=== PATIENT | male | born 1965 | race Caucasian/White ===

== ENCOUNTER 2022-06-07 15:18 | Outpatient (CLI) | payer OTHER, SELFPAY ==
[2022-06-07 16:19] LABS: Albumin* 4.1 g/dL (3.3-5.0); Chloride* 103 mmol/L (96-114); Sodium* 135 mmol/L (135-149)
[2022-06-07 16:21] LABS: Cholesterol* 207 mg/dL (90-199)
[2022-06-07 16:22] LABS: Alanine Aminotransferase* 15 U/L (4-50); Alkaline Phosphatase* 100 U/L (40-150); Bilirubin Total* 0.4 mg/dL (0.1-1.5); Blood Urea Nitrogen* 14 mg/dL (7-30); Carbon Dioxide* 23 mmol/L (20-32); Creatinine* 0.7 mg/dL (0.5-1.5); Estimated Glomerular Filt Rate 107 ml/min; Glucose* 164 mg/dL (60-115); Total Protein* 6.7 g/dL (6.0-8.3)
[2022-06-07 16:23] LABS: Calcium* 9.1 mg/dL (8.4-10.6); HDL Cholesterol* 27 mg/dL (>=40)
[2022-06-07 17:07] LABS: LDL Cholesterol Calculated -16 mg/dL (<100); Triglycerides* 981 mg/dL (40-149)
[2022-06-07 17:39] LABS: Aspartate Amino Transferase* 26 U/L (12-35)
== END 2022-06-07 15:19 | disposition home or self-care (01) ==
PROVIDERS: PCP Physician Assistant Medical; Visit Provider Family Medicine
DX: Z00.00 Encounter for general adult medical examination without abnormal findings (principal); E11.9 Type 2 diabetes mellitus without complications; Z13.6 Encounter for screening for cardiovascular disorders; Z12.5 Encounter for screening for malignant neoplasm of prostate
CPT/HCPCS: 80053; 80061; 82043; 82570; 84153

== ENCOUNTER 2022-10-13 14:16 | Outpatient (CLI) | payer OTHER, SELFPAY ==
[2022-10-13 15:15] LABS: Albumin* 4.1 g/dL (3.3-5.0); Chloride* 104 mmol/L (96-114); Potassium* 4.5 mmol/L (3.6-5.1); Sodium* 136 mmol/L (135-149)
[2022-10-13 15:17] LABS: Carbon Dioxide* 23 mmol/L (20-32); Cholesterol* 228 mg/dL (90-199); Creatinine* 0.7 mg/dL (0.5-1.5); Estimated Glomerular Filt Rate 106 ml/min
[2022-10-13 15:18] LABS: Alanine Aminotransferase* 24 U/L (4-50); Alkaline Phosphatase* 100 U/L (40-150); Aspartate Amino Transferase* 34 U/L (12-35); Bilirubin Total* 0.4 mg/dL (0.1-1.5); Blood Urea Nitrogen* 16 mg/dL (7-30); Calcium* 8.8 mg/dL (8.4-10.6); Glucose* 191 mg/dL (60-115); Total Protein* 6.9 g/dL (6.0-8.3)
[2022-10-13 15:19] LABS: HDL Cholesterol* 25 mg/dL (>=40)
[2022-10-13 15:46] LABS: Microalbumin Urine 1 mg/dL
[2022-10-13 15:48] LABS: Creatinine Urine 96.7 mg/dL; Microalbumin Creatinine Ratio 10 mg/g (0-30)
[2022-10-13 16:18] LABS: PSA Screen* 1.03 ng/mL (0.10-4.00)
[2022-10-13 17:18] LABS: Triglycerides* 2095 mg/dL (40-149)
== END 2022-10-13 14:17 | disposition home or self-care (01) ==
PROVIDERS: PCP Physician Assistant Medical; Visit Provider Emergency Medicine
DX: Z00.00 Encounter for general adult medical examination without abnormal findings (principal); E11.9 Type 2 diabetes mellitus without complications; E78.1 Pure hyperglyceridemia; I10 Essential (primary) hypertension; Z12.5 Encounter for screening for malignant neoplasm of prostate
CPT/HCPCS: 80053; 80061; 82043; 82570; 84153

== ENCOUNTER 2022-10-26 15:34 | Outpatient (CLI) | payer OTHER, SELFPAY ==
--- NOTE | 2022-10-26 16:00 | CRLHL7_ITS ---
For Patients: As a result of the Century Cures Act, medical imaging exams and procedure reports are released immediately into your electronic medical record. You may view this report before your referring provider. If you have questions, please contact your health care provider. INDICATION: Lung cancer screening. History of smoking. High risk patient with greater than 60 pack-year smoking history. TECHNIQUE: Low-dose lung cancer screening non-contrast CT chest. Dose reduction techniques were used. COMPARISON: None. FINDINGS: NODULES: Calcified lingula. 3 mm nodule left lower lobe 3/128. LUNGS AND PLEURA: Mild bullous emphysema. No infiltrate. MEDIASTINUM: Calcified left hilar lymph nodes. No suspicious lymph nodes. CORONARY ARTERY CALCIFICATION: Present. LIMITED UPPER ABDOMEN: 1 cm left adrenal nodule. MUSCULOSKELETAL: Degenerative changes IMPRESSION: Negative for lung cancer screening purposes. LUNG-RADS CATEGORY: 1: Negative. RADIOLOGIST RECOMMENDATION: Continue annual screening with low-dose CT chest in 12 months. Please note that all CT scans at this facility use dose modulation, iterative reconstruction, and/or weight-based dosing when appropriate to reduce radiation dose to as low as reasonably achievable. Dictated by Ketan Zhang MD @ 10/27/2022 4:52:06 PM (Electronically Signed)
== END 2022-10-26 15:35 | disposition home or self-care (01) ==
LOC: CT 15:35
PROVIDERS: PCP Emergency Medicine; Visit Provider Emergency Medicine
DX: Z12.2 Encounter for screening for malignant neoplasm of respiratory organs (principal); F17.210 Nicotine dependence, cigarettes, uncomplicated
CPT/HCPCS: 71271

== ENCOUNTER 2022-11-08 18:37 | Outpatient (CLI) | payer OTHER, SELFPAY ==
[2022-11-08 21:49] LABS: Chloride* 104 mmol/L (96-114)
[2022-11-08 21:50] LABS: Potassium* 4.1 mmol/L (3.6-5.1); Sodium* 137 mmol/L (135-149)
[2022-11-08 21:52] LABS: Creatinine* 0.9 mg/dL (0.5-1.5); Estimated Glomerular Filt Rate 98 ml/min
[2022-11-08 21:53] LABS: Blood Urea Nitrogen* 21 mg/dL (7-30); Calcium* 9.8 mg/dL (8.4-10.6); Carbon Dioxide* 25 mmol/L (20-32); Glucose* 114 mg/dL (60-115)
== END 2022-11-08 18:38 | disposition home or self-care (01) ==
PROVIDERS: PCP Emergency Medicine; Visit Provider Emergency Medicine
DX: E78.1 Pure hyperglyceridemia (principal)
CPT/HCPCS: 80048; 80061

== ENCOUNTER 2022-12-01 07:56 | Outpatient (CLI) | payer OTHER, SELFPAY ==
--- NOTE | 2022-12-01 08:34 | W.ANESCHARGE ---
Anesthesia Charges Start Date/Time Anesthesia Start Date: 12/01/22 Anesthesia Start Time: 08:53 Stop Date/Time Anesthesia Stop Date: 12/01/22 Anesthesia Stop Time: 09:30
--- NOTE | 2022-12-01 09:32 | W.ANESCHARGE ---
Anesthesia Charges Start Date/Time Anesthesia Start Date: 12/01/22 Anesthesia Start Time: 08:53 Stop Date/Time Anesthesia Stop Date: 12/01/22 Anesthesia Stop Time: 09:30
== END 2022-12-01 07:57 | disposition home or self-care (01) ==
PROVIDERS: PCP Emergency Medicine; Visit Provider Surgery
DX: Z12.11 Encounter for screening for malignant neoplasm of colon (principal); K63.5 Polyp of colon; Z86.010 Personal history of colon polyps
CPT/HCPCS: 00811; 45385; 88305; J2704

== ENCOUNTER 2023-01-13 08:00 | Outpatient (CLI) | payer OTHER, SELFPAY | END 2023-01-13 08:01 | disposition home or self-care (01) | LOC: NFLDREF 01-14 19:43 | PROVIDERS: PCP Emergency Medicine; Referring Provider Emergency Medicine; Visit Provider Emergency Medicine | DX: E78.1 Pure hyperglyceridemia (principal) | CPT/HCPCS: 80061 ==

== ENCOUNTER 2023-04-28 08:15 | Outpatient (CLI) | payer OTHER, SELFPAY | END 2023-04-28 08:16 | disposition home or self-care (01) | LOC: NFLDREF 04-30 02:23 | PROVIDERS: PCP Emergency Medicine; Referring Provider Emergency Medicine; Visit Provider Emergency Medicine | DX: E78.1 Pure hyperglyceridemia (principal); E11.9 Type 2 diabetes mellitus without complications | CPT/HCPCS: 80061 ==

== ENCOUNTER 2023-11-01 07:33 | Outpatient (CLI) | payer OTHER, SELFPAY | END 2023-11-01 07:34 | disposition home or self-care (01) | LOC: NFLDREF 11-03 05:47 | PROVIDERS: PCP Emergency Medicine; Referring Provider Emergency Medicine; Visit Provider Emergency Medicine | DX: Z00.00 Encounter for general adult medical examination without abnormal findings (principal); E11.9 Type 2 diabetes mellitus without complications; E78.1 Pure hyperglyceridemia; I10 Essential (primary) hypertension; Z13.6 Encounter for screening for cardiovascular disorders; Z12.5 Encounter for screening for malignant neoplasm of prostate | CPT/HCPCS: 80048; 80061; G0103 ==

== ENCOUNTER 2024-01-05 08:11 | Outpatient (CLI) | payer OTHER, SELFPAY ==
--- NOTE | 2024-01-05 09:00 | CT_ITS ---
Patient: PERRI MART Facility:?[facility] RIS Patient ID:?[id number] Site Patient ID:?[id number]. Site :?[id number] Study:?CT-Chest LOW DOSE-01/05/2024 8:42:52 AM Ordering Physician:?DR. GARCIA Final Report: INDICATION: Lung cancer screening. History of smoking. High risk patient with greater than 20 pack-year smoking history. TECHNIQUE: Low-dose lung cancer screening non-contrast CT chest. Dose reduction techniques were used. COMPARISON: None. FINDINGS: NODULES: Calcified granulomas in the left upper lobe. 2 millimeter nodule right upper lobe, 12/22. LUNGS AND PLEURA: Emphysema. MEDIASTINUM: Calcified left hilar lymph nodes. Incidental Bochdalek`s hernia containing fat on the left. CORONARY ARTERY CALCIFICATION: Present. LIMITED UPPER ABDOMEN: Diffuse hepatic steatosis. MUSCULOSKELETAL: Unremarkable. IMPRESSION: 2 millimeter right upper lobe noncalcified nodule. Calcified nodules left upper lobe. LUNG-RADS CATEGORY: 2: Benign. RADIOLOGIST RECOMMENDATION: Continue annual screening with low-dose CT chest in 12 months. Please note that all CT scans at this facility use dose modulation, iterative reconstruction, and/or weight-based dosing when appropriate to reduce radiation dose to as low as reasonably achievable. Dictated by Ketan Zhang MD @ 01/05/2024 12:01:43 PM Signed by:?Ketan Zhang MD @01/05/2024 12:01:43 PM (Electronic Signature)
== END 2024-01-05 08:12 | disposition home or self-care (01) ==
LOC: CT 08:12
PROVIDERS: PCP Emergency Medicine; Visit Provider Emergency Medicine
DX: Z12.2 Encounter for screening for malignant neoplasm of respiratory organs (principal); R91.8 Other nonspecific abnormal finding of lung field; F17.210 Nicotine dependence, cigarettes, uncomplicated
CPT/HCPCS: 71271

== ENCOUNTER 2024-03-21 07:24 | Outpatient (CLI) | payer OTHER, SELFPAY | END 2024-03-21 07:25 | disposition home or self-care (01) | LOC: NFLDREF 03-22 12:49 | PROVIDERS: PCP Emergency Medicine; Referring Provider Emergency Medicine; Visit Provider Emergency Medicine | DX: E11.9 Type 2 diabetes mellitus without complications (principal); R79.89 Other specified abnormal findings of blood chemistry; E78.1 Pure hyperglyceridemia; I10 Essential (primary) hypertension | CPT/HCPCS: 80048; 80061; 82043; 82570 ==

== ENCOUNTER 2024-06-05 07:43 | Outpatient (CLI) | payer OTHER, SELFPAY | END 2024-06-05 07:44 | disposition home or self-care (01) | LOC: NFLDREF 06-08 19:41 | PROVIDERS: PCP Emergency Medicine; Referring Provider Emergency Medicine; Visit Provider Emergency Medicine | DX: R79.89 Other specified abnormal findings of blood chemistry (principal); E78.1 Pure hyperglyceridemia | CPT/HCPCS: 80061; 84270; 84402; 84403 ==

== ENCOUNTER 2024-11-14 15:40 | Outpatient (CLI) | payer OTHER, SELFPAY | END 2024-11-14 15:41 | disposition home or self-care (01) | PROVIDERS: PCP Emergency Medicine; Visit Provider Emergency Medicine | DX: I10 Essential (primary) hypertension (principal); E78.1 Pure hyperglyceridemia; E11.9 Type 2 diabetes mellitus without complications; Z12.5 Encounter for screening for malignant neoplasm of prostate | CPT/HCPCS: 80053; 80061; G0103 ==

== ENCOUNTER 2025-01-10 11:46 | Outpatient (CLI) | payer OTHER, SELFPAY ==
--- NOTE | 2025-01-10 13:00 | CRLHL7_ITS ---
For Patients: As a result of the Century Cures Act, medical imaging exams and procedure reports are released immediately into your electronic medical record. You may view this report before your referring provider. If you have questions, please contact your health care provider. INDICATION: Lung cancer screening. History of smoking. High risk patient with greater than 43 pack-year smoking history. TECHNIQUE: Low-dose lung cancer screening non-contrast CT chest. Dose reduction techniques were used. COMPARISON: 2 FINDINGS: NODULES: Calcified nodules on the left and unchanged. Stable small nodule right upper lobe. LUNGS AND PLEURA: Emphysema. MEDIASTINUM: No adenopathy. CORONARY ARTERY CALCIFICATION: Present. LIMITED UPPER ABDOMEN: Hepatic steatosis. Left adrenal nodule unchanged. MUSCULOSKELETAL: Unremarkable. IMPRESSION: Negative for lung cancer screening purposes. LUNG-RADS CATEGORY: 2: Benign. RADIOLOGIST RECOMMENDATION: Continue annual screening with low-dose CT chest in 12 months. Please note that all CT scans at this facility use dose modulation, iterative reconstruction, and/or weight-based dosing when appropriate to reduce radiation dose to as low as reasonably achievable. Dictated by Ketan Zhang MD @ 01/13/2025 10:42:34 AM (Electronically Signed)
== END 2025-01-10 11:47 | disposition home or self-care (01) ==
LOC: CT 11:47
PROVIDERS: PCP Emergency Medicine; Visit Provider Emergency Medicine
DX: Z12.2 Encounter for screening for malignant neoplasm of respiratory organs (principal); F17.210 Nicotine dependence, cigarettes, uncomplicated
CPT/HCPCS: 71271

== ENCOUNTER 2025-02-18 14:40 | Outpatient (CLI) | payer OTHER, SELFPAY ==
[2025-02-18] MEDS: PERFLUTREN LIPID MICROSPHERES 2 ML VIAL IVP (15:49)
[2025-02-18 16:12] VITALS: BP 142/72; PULSE 80; RESP 16; O2SAT 96
--- NOTE | 2025-02-18 16:26 | W.PM.STED ---
Stress Test Note Date Date Seen: 02/18/25 Date of test: 02/18/25 Providers Primary care provider: Belkis Cortez Stress test physician: Zia Tilley Stress Test Note Stress test ordered: Stress Echo Indication for test: Chest pain Stress test medicine: Definity Results discussion: This pleasant gentleman presents for the above test. After discussion of the risks and benefits, he accepts and would like to proceed. Pretest ekg shows normal sinus rthym and no changes. NSR at 77 with a blood pressure of 142/79. Following Andrea protocol he is exercised for 9:41 min and achieved a max hr of 151 this is 111% of the target. No signicant changes are seen on review of the tracing, there were no dysrhtymias. No subjective complaints and exercise tolerance is good. Impression: Negative electorgraphic stress test Follow up suggested: await echo imaging, this will be reviewed by Cardiology and clinical correlation will be needed.
== END 2025-02-18 16:18 | disposition home or self-care (01) ==
LOC: STRESS 14:41
PROVIDERS: PCP Emergency Medicine; Visit Provider Internal Medicine Cardiovascular Disease
DX: R07.9 Chest pain, unspecified (principal); I34.0 Nonrheumatic mitral (valve) insufficiency; E78.1 Pure hyperglyceridemia
CPT/HCPCS: 93016; 93325; 93351; Q9957

== ENCOUNTER 2025-05-01 19:00 | Outpatient (CLI) | payer OTHER, SELFPAY | END 2025-05-01 19:01 | disposition home or self-care (01) | LOC: NFLDREF 05-07 12:44 | PROVIDERS: PCP Emergency Medicine; Referring Provider Emergency Medicine; Visit Provider Emergency Medicine | DX: E11.9 Type 2 diabetes mellitus without complications (principal); E78.1 Pure hyperglyceridemia; I10 Essential (primary) hypertension | CPT/HCPCS: 80048; 80061; 82043; 82570 ==